=== PATIENT | male | born 1935 | race Caucasian/White ===

== ENCOUNTER 2020-12-25 13:05 | Inpatient (IN) ==
[2020-12-25] MEDS: Apixaban 5 MG TABLET PO SCH (21:33)
[2020-12-26] MEDS: Levothyroxine 25 MCG TABLET PO SCH (05:29)
[2020-12-26 07:33] LABS: Basophils % 0.7 %; Eosinophils % 0.2 %; Hematocrit 44.5 % (37.5-50.1); Hemoglobin 14.7 g/dL (12.9-16.9); Immature Granulocytes % 4.9 % (0-4); Lymphocytes # 0.2 K/mcL (0.6-4.6); Lymphocytes % 3.4 %; Mean Corpuscular Hemoglobin 30.7 pg (28.0-33.3); Mean Corpuscular Volume 92.9 fL (83.0-100.0); Mean Platelet Volume 9.9 fL (9.4-12.4); Monocytes # 0.2 K/mcL (0.0-1.3); Monocytes % 2.7 %; Neutrophils # 5.2 K/mcL (1.6-8.9); Platelet Count 204 K/mcL (140-400); Red Blood Count 4.79 M/mcL (4.19-5.50); Red Cell Distribution Width 13.4 % (11.5-14.5); Segmented Neutrophils % 88.1 %; White Blood Count 5.9 K/mcL (4.3-11.1)
[2020-12-26 07:46] LABS: BUN/Creatinine Ratio 18 (6-26); Blood Urea Nitrogen 16 mg/dL (8-23); Calcium 8.9 mg/dL (8.6-10.3); Carbon Dioxide 28 mEq/L (23-29); Chloride 100 mEq/L (98-107); Glucose 78 mg/dL (70-105); Magnesium 2.2 mg/dL (1.6-2.6); Osmolality,Calculated 282 (280-300); Potassium 3.6 mEq/L (3.5-5.1); Sodium 136 mEq/L (136-145); eGFR For African Americans > 60 (> 60); eGFR For Non-African Americans > 60 (> 60)
[2020-12-26] MEDS: Apixaban 5 MG TABLET PO SCH ×2 (09:23→20:28)
[2020-12-26] MEDS: Dorzolamide OPTH 10 ML BOTTLE LEFT EYE SCH (09:47)
[2020-12-27] MEDS: Levothyroxine 25 MCG TABLET PO SCH (05:25)
[2020-12-27] MEDS: Apixaban 5 MG TABLET PO SCH ×2 (08:22→20:55)
[2020-12-27] MEDS: Dorzolamide OPTH 10 ML BOTTLE LEFT EYE SCH (08:23)
[2020-12-28] MEDS: Levothyroxine 25 MCG TABLET PO SCH (06:10)
[2020-12-28] MEDS: Apixaban 5 MG TABLET PO SCH ×2 (08:17→20:03)
[2020-12-28] MEDS: Dorzolamide OPTH 10 ML BOTTLE LEFT EYE SCH (08:18)
[2020-12-28] MEDS: Acetaminophen 325 MG TABLET PO PRN (20:02)
[2020-12-29] MEDS: Levothyroxine 25 MCG TABLET PO SCH (05:18)
[2020-12-29] MEDS: Dorzolamide OPTH 10 ML BOTTLE LEFT EYE SCH (08:49)
[2020-12-29] MEDS: Acetaminophen 325 MG TABLET PO PRN ×2 (08:49→19:49)
[2020-12-29] MEDS: Apixaban 5 MG TABLET PO SCH ×2 (08:49→19:50)
[2020-12-30] MEDS: Levothyroxine 25 MCG TABLET PO SCH (06:22)
[2020-12-30] MEDS: Apixaban 5 MG TABLET PO SCH ×2 (08:40→20:32)
[2020-12-30] MEDS: Acetaminophen 325 MG TABLET PO PRN (08:41)
[2020-12-30] MEDS: Dorzolamide OPTH 10 ML BOTTLE LEFT EYE SCH (08:43)
[2020-12-30 16:12] LABS: Basophils % 0.5 %; Eosinophils % 0.3 %; Hematocrit 42.6 % (37.5-50.1); Immature Granulocytes % 0.6 % (0-4); Lymphocytes # 0.5 K/mcL (0.6-4.6); Lymphocytes % 7.9 %; Mean Corpuscular HGB Conc 32.9 g/dL (31.6-35.5); Mean Corpuscular Hemoglobin 30.7 pg (28.0-33.3); Mean Corpuscular Volume 93.4 fL (83.0-100.0); Mean Platelet Volume 9.4 fL (9.4-12.4); Monocytes # 0.6 K/mcL (0.0-1.3); Monocytes % 9.2 %; Neutrophils # 5.1 K/mcL (1.6-8.9); Platelet Count 279 K/mcL (140-400); Red Blood Count 4.56 M/mcL (4.19-5.50); Red Cell Distribution Width 13.7 % (11.5-14.5); Segmented Neutrophils % 81.5 %; White Blood Count 6.2 K/mcL (4.3-11.1)
[2020-12-30 16:25] LABS: Potassium 3.9 mEq/L (3.5-5.1)
[2020-12-30 18:22] LABS: Bilirubin,Urine Negative (Negative); Blood,Urine Negative (Negative); Clarity,Urine Clear (Clear); Color,Urine Yellow (Yellow); Glucose,Urine (UA) Normal (Normal); Ketones,Urine Trace mg/dL (Negative); Leukocyte Esterase,Urine Negative (Negative); Nitrite,Urine Negative (Negative); Protein,Urine Trace mg/dL (Neg-Trace); Specific Gravity,Urine 1.025 (1.010-1.025); Urobilinogen,Urine Normal (Normal)
[2020-12-31] MEDS: Levothyroxine 25 MCG TABLET PO SCH (06:18)
[2020-12-31] MEDS: Apixaban 5 MG TABLET PO SCH ×2 (09:16→20:41)
[2020-12-31] MEDS: Dorzolamide OPTH 10 ML BOTTLE LEFT EYE SCH (09:20)
[2021-01-01] MEDS: Levothyroxine 25 MCG TABLET PO SCH (06:17)
[2021-01-01] MEDS: Apixaban 5 MG TABLET PO SCH ×2 (07:40→20:53)
[2021-01-01] MEDS: Dorzolamide OPTH 10 ML BOTTLE LEFT EYE SCH (20:53)
[2021-01-02] MEDS: Levothyroxine 25 MCG TABLET PO SCH (06:42)
[2021-01-02] MEDS: Dorzolamide OPTH 10 ML BOTTLE LEFT EYE SCH (09:20)
[2021-01-02] MEDS: Apixaban 5 MG TABLET PO SCH ×2 (09:20→21:27)
[2021-01-03] MEDS: Levothyroxine 25 MCG TABLET PO SCH (05:14)
[2021-01-03] MEDS: Apixaban 5 MG TABLET PO SCH ×2 (10:27→21:05)
[2021-01-03] MEDS: Dorzolamide OPTH 10 ML BOTTLE LEFT EYE SCH (10:28)
[2021-01-04] MEDS: Levothyroxine 25 MCG TABLET PO SCH (06:50)
[2021-01-04] MEDS: Apixaban 5 MG TABLET PO SCH ×2 (10:29→21:16)
[2021-01-04] MEDS: Dorzolamide OPTH 10 ML BOTTLE LEFT EYE SCH (10:53)
[2021-01-05] MEDS: Levothyroxine 25 MCG TABLET PO SCH (05:51)
[2021-01-05] MEDS: Apixaban 5 MG TABLET PO SCH ×2 (10:17→20:24)
[2021-01-05] MEDS: Dorzolamide OPTH 10 ML BOTTLE LEFT EYE SCH (10:18)
[2021-01-06] MEDS: Levothyroxine 25 MCG TABLET PO SCH (06:51)
[2021-01-06] MEDS: Dorzolamide OPTH 10 ML BOTTLE LEFT EYE SCH (09:39)
[2021-01-06] MEDS: Apixaban 5 MG TABLET PO SCH ×2 (09:39→21:40)
[2021-01-07] MEDS: Levothyroxine 25 MCG TABLET PO SCH (07:18)
[2021-01-07 07:31] LABS: BUN/Creatinine Ratio 17 (6-26); Blood Urea Nitrogen 16 mg/dL (8-23); Calcium 9.3 mg/dL (8.6-10.3); Carbon Dioxide 27 mEq/L (23-29); Chloride 104 mEq/L (98-107); Glucose 87 mg/dL (70-105); Osmolality,Calculated 285 (280-300); Potassium 4.2 mEq/L (3.5-5.1); Sodium 137 mEq/L (136-145); eGFR For African Americans > 60 (> 60); eGFR For Non-African Americans > 60 (> 60)
[2021-01-07] MEDS: Dorzolamide OPTH 10 ML BOTTLE LEFT EYE SCH (09:02)
[2021-01-07] MEDS: Apixaban 5 MG TABLET PO SCH ×2 (09:02→21:04)
[2021-01-08] MEDS: Levothyroxine 25 MCG TABLET PO SCH (06:30)
[2021-01-08] MEDS: Apixaban 5 MG TABLET PO SCH ×2 (08:12→21:39)
[2021-01-08] MEDS: Dorzolamide OPTH 10 ML BOTTLE LEFT EYE SCH (08:13)
[2021-01-09] MEDS: Levothyroxine 25 MCG TABLET PO SCH (06:36)
[2021-01-09] MEDS: Apixaban 5 MG TABLET PO SCH ×2 (08:52→20:49)
[2021-01-09] MEDS: Dorzolamide OPTH 10 ML BOTTLE LEFT EYE SCH (08:53)
[2021-01-10] MEDS: Levothyroxine 25 MCG TABLET PO SCH (05:57)
[2021-01-10] MEDS: Dorzolamide OPTH 10 ML BOTTLE LEFT EYE SCH (09:44)
[2021-01-10] MEDS: Apixaban 5 MG TABLET PO SCH ×2 (09:44→20:43)
[2021-01-11] MEDS: Levothyroxine 25 MCG TABLET PO SCH (04:36)
[2021-01-11] MEDS: Dorzolamide OPTH 10 ML BOTTLE LEFT EYE SCH (09:26)
[2021-01-11] MEDS: Apixaban 5 MG TABLET PO SCH ×2 (09:26→20:35)
[2021-01-12] MEDS: Levothyroxine 25 MCG TABLET PO SCH (05:39)
[2021-01-12 07:21] VITALS: BP 154/91; PULSE 93; RESP 18; TEMP 97.4; O2SAT 97
[2021-01-12] MEDS: Apixaban 5 MG TABLET PO SCH (10:13)
[2021-01-12] MEDS: Dorzolamide OPTH 10 ML BOTTLE LEFT EYE SCH (10:13)
== END 2021-01-12 13:00 | disposition home health service (06) | DRG 177 ==
LOC: INPPIK 15:00
PROVIDERS: ADMIT Family Medicine; ATTEND Family Medicine